=== PATIENT | female | born 1985 | race Caucasian/White ===

== ENCOUNTER 2017-12-28 12:41 | Emergency (ER) | payer OTHER ==
[2017-12-28 13:03] VITALS: RESP 16; TEMP 98.1
--- NOTE | 2017-12-28 13:42 | ED ---
Psych HPI - General Chief Complaint: Psychiatric Symptoms Stated Complaint: suicidal Time Seen by Provider: 12/28/17 13:07 Source: patient, RN notes reviewed Mode of arrival: ambulatory Limitations: no limitations - History of Present Illness Initial Comments: This is a 32-year-old female presents emergency Department chief complaint of suicidal ideation. Patient states she has ongoing depression states that she struggle with suicidal ideations for most her leg but they have worsened and she 's having more thoughts of self-harm. Patient states that she held a mitral arm today. States that she did not cut herself. 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 She states she has an appointment in the first week of January with a psychiatrist but states that those are getting worse so she came to the emergency department. Patient denies any physical complaints. She denies any chance . Denies any homicidal ideations. - Related Data Home Medications Medication Instructions Recorded Confirmed Flaxseed Oil [[place]-3 Flaxseed Oil] 1,000 mg PO HS@1700 12/28/17 12/28/17 Montelukast [Singulair] 10 mg PO HS@1700 12/28/17 12/28/17 Multivitamins, Thera [Multivitamin 1 tab PO HS@1700 12/28/17 12/28/17 (formulary)] Vilazodone HCl [Viibryd] 20 mg PO HS@1700 12/28/17 12/28/17 Vitamin C/Biotin [Hair, Skin and 1 tab PO HS@1700 12/28/17 12/28/17 Nails] Allergies Allergy/AdvReac Type Severity Reaction Status Date / Time No Known Allergies Allergy Verified 12/28/17 13:25 Review of Systems ROS Statement: Those systems with pertinent positive or pertinent negative responses have been documented in the HPI. ROS Other: All systems not noted in ROS Statement are negative. Past Medical History Additional Past Medical History / Comment(s): postural tachycardia History of Any Multi-Drug Resistant Organisms: None Reported Additional Past Surgical History / Comment(s): jaw Past Psychological History: Depression, PTSD Smoking Status: Never smoker Past Alcohol Use History: Rare Past Drug Use History: None Reported General Exam Limitations: no limitations General appearance: alert, in no apparent distress Head exam: Present: atraumatic, normocephalic, normal inspection Eye exam: Present: normal appearance, PERRL, EOMI. Absent: scleral icterus, conjunctival injection, periorbital swelling ENT exam: Present: normal exam, normal oropharynx, mucous membranes moist Neck exam: Present: normal inspection. Absent: tenderness, meningismus, lymphadenopathy Respiratory exam: Present: normal lung sounds bilaterally. Absent: respiratory distress, wheezes, rales, rhonchi, stridor Cardiovascular Exam: Present: regular rate, normal rhythm, normal heart sounds. Absent: systolic murmur, diastolic murmur, rubs, gallop, clicks GI/Abdominal exam: Present: soft, normal bowel sounds. Absent: distended, tenderness, guarding, rebound, rigid Neurological exam: Present: alert, oriented X3, CN II-XII intact Psychiatric exam: Present: flat affect Skin exam: Present: warm, dry, intact, normal color. Absent: rash Course Vital Signs 12/28/17 12:59 Temperature 98.1 F Pulse Rate 113 H Respiratory 16 Rate Blood Pressure 140/77 O2 Sat by Pulse 99 Oximetry Medical Decision Making - Medical Decision Making 32-year-old female presented for psychiatric evaluation. Patient was evaluated by EPS case discussed with on-call psychiatrist does not feel that she needs inpatient treatment they feel she is safe to be discharged at this time return for worsening symptoms. - Lab Data Lab Results 12/28/17 12/28/17 Range/Units 14:15 14:15 Urine HCG, Qual Not Detected (Not Detectd) Urine Opiates Screen Not Detected (NotDetected) Ur Oxycodone Screen Not Detected (NotDetected) Urine Methadone Screen Not Detected (NotDetected) Ur Propoxyphene Screen Not Detected (NotDetected) Ur Barbiturates Screen Not Detected (NotDetected) U Tricyclic Antidepress Not Detected (NotDetected) Ur Phencyclidine Scrn Not Detected (NotDetected) Ur Amphetamines Screen Not Detected (NotDetected) U Methamphetamines Scrn Not Detected (NotDetected) U Benzodiazepines Scrn Not Detected (NotDetected) Urine Cocaine Screen Not Detected (NotDetected) U Marijuana (THC) Screen Not Detected (NotDetected) Disposition Clinical Impression: Depression Disposition: HOME SELF-CARE Condition: Stable Instructions: Depression (ED) Additional Instructions: Please return to the Emergency Department if symptoms worsen or any other concerns. Is patient prescribed a controlled substance at d/c from ED?: No Referrals: Praveen Foreman MD [Primary Care Provider] - 1-2 days Time of Disposition: 14:58
[2017-12-28 14:44] LABS: Amphetamine Screen,Urine Not Detected (NotDetected); Barbiturate Screen,Urine Not Detected (NotDetected); Benzodiazepines Screen,Urine Not Detected (NotDetected); Cocaine Screen,Urine Not Detected (NotDetected); Methadone Screen, Urine Not Detected (NotDetected); Opiate Screen,Urine Not Detected (NotDetected); Oxycodone Screen, Urine Not Detected (NotDetected); Phencyclidine Screen,Urine Not Detected (NotDetected); Tricyclic Antidepressant,Urine Not Detected (NotDetected); Urn Cannabinoid Scrn Not Detected (NotDetected)
[2017-12-28 15:10] VITALS: BP 132/71; PULSE 88
== END 2017-12-28 15:05 | disposition home or self-care (01) ==
LOC: EC 12:41
DX: F32.9 Major depressive disorder, single episode, unspecified (principal); F43.10 Post-traumatic stress disorder, unspecified; Z79.899 Other long term (current) drug therapy
CPT/HCPCS: 80306; 81025; 82075; 99285

== ENCOUNTER 2020-04-14 17:52 | Emergency (ER) | payer OTHER ==
[2020-04-14 18:27] VITALS: BP 111/63; PULSE 62; RESP 18; TEMP 98.4
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
== END 2020-04-14 20:12 | disposition home or self-care (01) ==
LOC: EC 17:52
DX: M54.2 Cervicalgia (principal); G44.209 Tension-type headache, unspecified, not intractable; Z79.51 Long term (current) use of inhaled steroids; Z79.899 Other long term (current) drug therapy; V43.62XA Car passenger injured in collision with other type car in traffic accident, initial encounter; Y92.410 Unspecified street and highway as the place of occurrence of the external cause
CPT/HCPCS: 70450; 71046; 72125; 99284

== ENCOUNTER → 2021-05-27 | Day surgery (SDC) | payer MEDICARE ==
[2021-05-27 12:41] VITALS: RESP 16
[2021-05-27 13:22] VITALS: BP 107/73; PULSE 91; TEMP 98.7
--- NOTE | 2021-05-27 14:59 | USB ---
EXAMINATION TYPE: US breast needle core RT, MG diagnostic mammo RT wo CAD DATE OF EXAM: 05/27/2021 HISTORY: Right breast mass. FINDINGS: Maximal barrier technique was utilized. Hand hygiene achieved with soap and water and alcohol-based hand rub. The skin overlying a suitable path to the patient's mass in the 3:00 position of the right breast] was localized with ultrasound and the overlying skin prepped and draped. Ultrasound was utilized with sterile technique. Lidocaine was used for local anesthesia. Attempt with a 23-gauge needle was made, lesion was unable to be aspirated. A skin alexandru was made with a scalpel. An 18-gauge needle was advanced under direct ultrasound guidance and core specimen obtained of the mass. 3 passes were made. Specimen submittedon wet Telfa to Pathology. Following the procedure, hemostasis achieved and the patient is discharged in stable condition without complication. A butterfly clip was deployed. Postprocedure mammogram performed demonstrating the position of the clip to be medial within the right breast at the 9:00 position. IMPRESSION:STATUS POST ULTRASOUND GUIDED CORE BIOPSY OF right breast MASS, PATHOLOGY IS PENDING. THIS PROCEDURE IS PERFORMED BY THE UNDERSIGNED. Pathology Results: High Risk RIGHT BREAST, THREE O'CLOCK, ULTRASOUND GUIDED CORE BIOPSY: Sclerotic intraductal papilloma. Recommendation Surgical consult of the right breast. Consider open biopsy. [place]
== END ==
LOC: RADUSWWP 12:30
PROVIDERS: ATTEND Surgery
DX: D24.1 Benign neoplasm of right breast (principal); N63.10 Unspecified lump in the right breast, unspecified quadrant
CPT/HCPCS: 88305; 77065; 19083; A4648; J2001

== ENCOUNTER → 2021-05-27 | Outpatient (CLI) | payer MEDICARE ==
[2021-05-27 11:17] VITALS: BP 110/76; PULSE 117; RESP 16; TEMP 98.3
--- NOTE | 2021-05-27 11:51 | P.GSHP ---
History of Present Illness H&P Date: 05/27/21 Chief Complaint: right breast nipple discharge Rodney is a 35 year old white female seen in consultation for Dr. Foreman regarding right nipple discharge. She has been having the discharge since 2007. It is dark green. It comes from multiple ducts, and she has never noted blood from this site. [place] [address]. This revealed a 0.8 by 0.6 cm lesion for which an ultrasound core biopsy was recommended. She complains of random pain in the lateral breast, it is sharp and shooting in nature. It resendez not last. She states she feels bilateral new lumps in her medial breast. She does not complain of any trauma or infection in the past. The left breast ultrasound report is pending. Caffeine: none nicotine: none chocolate: rare hormones: BCP; for 7 years Family History: maternal grandmother: dx. in her 50's breast cancer; multiple recurrences did of metastatic disease Hormonal history: menarche: 14 G0 periods irregular even on BCP Surgical History: jaw surgery Medical History: Postural orthostatic tachycardia syndrome anxiety/depression All: none Social History: nicotine: none alcohol: none drugs: none - Constitutional Constitutional: Reports sweats - EENT Comment: eye migraines Eyes: denies blurred vision, denies pain Ears: deny: tinnitus Ears, nose, mouth and throat: Denies headache, Denies sore throat - Breasts Breasts: bilateral: as per HPI - Cardiovascular Cardiovascular: Denies chest pain, Denies shortness of breath - Respiratory Respiratory: Denies cough, Denies 7 - Gastrointestinal Gastrointestinal: Denies abdominal pain, Denies diarrhea, Denies nausea, Denies vomiting - Genitourinary (Female) Genitourinary: Denies dysuria, Denies hematuria - Menstruation Menstruation: Reports as per HPI - Musculoskeletal Musculoskeletal: Reports myalgias - Integumentary Integumentary: Denies pruritus, Denies rash - Neurological Neurological: Denies numbness, Denies weakness - Psychiatric Psychiatric: Reports anxiety, Reports depression - Endocrine Endocrine: Reports fatigue, Reports weight change - Hematologic/Lymphatic Comment: none - Allergic/Immunologic Allergic/Immunologic: Reports as per HPI Past Medical History Additional Past Medical History / Comment(s): postural tachycardia History of Any Multi-Drug Resistant Organisms: None Reported Additional Past Surgical History / Comment(s): jaw, and wisdome teeth 2004 Past Psychological History: Anxiety, Depression, PTSD Smoking Status: Never smoker Past Alcohol Use History: Rare Past Drug Use History: None Reported Medications and Allergies Home Medications Medication Instructions Recorded Confirmed Type Montelukast [Singulair] 10 mg PO HS@1700 12/28/17 05/27/21 History ARIPiprazole [Abilify] 10 mg PO DAILY 05/26/21 05/27/21 History LORazepam [Ativan] 0.5 mg PO QID 05/26/21 05/27/21 History Sertraline [Zoloft] 100 mg PO DAILY 05/26/21 05/27/21 History busPIRone HCl [Buspar] 5 mg PO TID 05/26/21 05/27/21 History Allergies Allergy/AdvReac Type Severity Reaction Status Date / Time No Known Allergies Allergy Verified 05/27/21 11:18 Surgical - Exam Vital Signs Temp Pulse Resp BP Pulse Ox 98.3 F 117 H 16 110/76 97 05/27/21 11:11 05/27/21 11:11 05/27/21 11:11 05/27/21 11:11 05/27/21 11:11 BMI: 32.9 - General well developed, well nourished, moderate distress - Eyes normal ocular movement - ENT no hearing loss, no congestion - Neck no masses, trachea midline - Respiratory normal respiratory effort, clear to auscultation - Cardiovascular Rhythm: regular Heart Sounds: normal: S1, S2 - Abdomen Abdomen: soft, non tender, no guarding, no rigid, no rebound - Integumentary normal turgor - Neurologic no disoriented, no combative - Musculoskeletal normal gait, normal posture - Psychiatric oriented to time, oriented to person, oriented to place, speech is normal, memory intact Breast Exam: BRA: 38C inspection: left breast larger than right, bilateral grade 3 ptosis palpation: Right breast: Multi-positional exam fibrocystic changes no dominant masses or nodules of concern, no nipple discharge Right axilla: No adenopathy of concern Left breast: Multi-positional exam fibrocystic changes, no dominant masses or nodules of concern no nipple discharge Left axilla: No adenopathy of concern Results Ultrasound report right breast review, left breast report pending Assessment and Plan Assessment: Impression: 1. Ultrasound abnormality right breast 2. Occasional right nipple discharge none is appreciated today 3. Fibrocystic breast changes 4. Asymmetry of the breasts 5. Family history of breast cancer/maternal grandmother 6. Anxiety/depression 7. Postural orthostatic tachycardia syndrome 8. breast pain bilateral Plan: 1. Obtain results of left breast ultrasound 2. Right breast ultrasound core biopsy 3. Nipple discharge appears to be physiologic non-worrisome Follow up after ultrasound core biopsy right breast Cc: Dr. Foreman
== END ==
LOC: WWCWWP 10:50
PROVIDERS: ATTEND Surgery
DX: N64.52 Nipple discharge (principal); N60.11 Diffuse cystic mastopathy of right breast; N60.12 Diffuse cystic mastopathy of left breast; F41.9 Anxiety disorder, unspecified; F32.9 Major depressive disorder, single episode, unspecified; I49.8 Other specified cardiac arrhythmias; Z80.3 Family history of malignant neoplasm of breast; Z79.899 Other long term (current) drug therapy

== ENCOUNTER → 2021-06-04 | Outpatient (CLI) | payer MEDICARE ==
[2021-06-04 14:25] VITALS: BP 126/89; PULSE 97; RESP 12; TEMP 98.3
--- NOTE | 2021-06-04 14:55 | P.PN ---
Subjective Progress Note Date: 06/04/21 Principal diagnosis: Intraductal papilloma right breast Rodney is a 35 year old who was seen in consultation for Dr. Foreman regarding right nipple discharge. She had been having the discharge since 2007. His start green. He comes from multiple ducts, she had never noted any blood from this site. [place] [address]. This revealed a 0.8 x 0.6 cm lesion for which an ultrasound core biopsy was recommended. The patient [place] [address] which was positive for sclerotic intraductal papilloma. The patient has no left breast discharge. Was having pain in that side. The patient did have [place] [address]. These results did not reveal any lesions of concern in the left breast. BCP: since 2009; used to regulate her periods Surgical history: Jaw surgery Medical history: Postural orthostatic tachycardia syndrome Anxiety/depression Social history: Nicotine: Negative Alcohol: Negative Drugs: Negative Family history: Maternal grandmother colon diagnosed in her 50s with breast cancer, multiple recurrences ultimately of metastatic disease Hormonal history: Menarche: 14 G0 Periods are regular even on control pills Objective - Vital Signs Vital signs: Vital Signs Temp 98.3 F 06/04/21 14:20 Pulse 97 06/04/21 14:20 Resp 12 06/04/21 14:20 BP 126/89 06/04/21 14:20 Pulse Ox 96 06/04/21 14:20 Intake & Output 06/03/21 06/04/21 06/04/21 18:59 06:59 18:59 Weight 92.986 kg - Constitutional General appearance: Present: cooperative - EENT Eyes: Present: EOMI ENT: Present: hearing grossly normal - Neck Neck: Present: normal ROM - Respiratory Respiratory: bilateral: CTA - Cardiovascular Heart sounds: normal: S1, S2 - Integumentary Integumentary Comment(s): biopsy site clean and dry no infection or hematoma Integumentary: Present: normal turgor - Musculoskeletal Musculoskeletal: Present: gait normal - Psychiatric Psychiatric: Present: A&O x's 3, appropriate affect, intact judgment & insight Assessment and Plan Assessment: Impression: 1. Ultrasound abnormality right breast/core biopsy intraductal papilloma Occasional right nipple discharge Fibrocystic breast changes Asymmetry of the breast Family history of breast cancer Anxiety/depression Posterolateral orthostatic tachycardia syndrome Bilateral breast pain Plan: Needle localization excisional biopsy of intraductal papilloma right breast Risks and benefits of the procedure discussed with the patient. Risks include but are not limited to bleeding, infection, reaction to the anesthetic. She understands that if the lesion which could be missed then additional treatment could be needed. She wishes to proceed. She understands that if she were w anting to breast feed in the future it may be not possible on the right side. Cc: Dr. Foreman
== END ==
LOC: WWCWWP 14:09
PROVIDERS: ATTEND Surgery
DX: D24.1 Benign neoplasm of right breast (principal); N60.19 Diffuse cystic mastopathy of unspecified breast; N64.89 Other specified disorders of breast; Z80.3 Family history of malignant neoplasm of breast; I49.8 Other specified cardiac arrhythmias; F41.9 Anxiety disorder, unspecified; F32.9 Major depressive disorder, single episode, unspecified

== ENCOUNTER → 2021-07-15 | Outpatient (CLI) | payer MEDICARE ==
[2021-07-15 14:10] VITALS: BP 113/75; PULSE 94; RESP 16; TEMP 98.2
--- NOTE | 2021-07-15 14:47 | P.PN ---
Subjective Progress Note Date: 07/15/21 Principal diagnosis: intraductal papilloma right breast Rodney is a 35 year old white female seen in consultation for Dr. Foreman regarding right nipple discharge. She had been having the discharge since 2007. It was dark green. It came from multiple ducts, and she had never noted blood from that site. [place] [id number]. This revealed a 0.8 by 0.6 cm lesion for which an ultrasound core biopsy was recommended. She complained of random pain in the lateral breast, it was sharp and shooting in nature. It did not last. She stated she felt bilateral new lumps in her medial breast. She did not complain of any trauma or infection in the past. An ultrasound core biopsy of the right breast was performed on [id number]. This was positive for a sclerotic intraductal papilloma. She did have a left breast ultrasound performed as well in April 2021 these results did not reveal any lesions of concern in the left breast. Caffeine: none nicotine: none chocolate: rare hormones: BCP; for 7 years Family History: maternal grandmother: dx. in her 50's breast cancer; multiple recurrences did of metastatic disease Hormonal history: menarche: 14 G0 periods irregular even on BCP Surgical History: jaw surgery Medical History: Postural orthostatic tachycardia syndrome anxiety/depression All: none Social History: nicotine: none alcohol: none drugs: none - Constitutional Constitutional: Reports sweats - EENT Comment: eye migraines Eyes: denies blurred vision, denies pain Ears: deny: tinnitus Ears, nose, mouth and throat: Denies headache, Denies sore throat - Breasts Breasts: bilateral: as per HPI - Cardiovascular Cardiovascular: Denies chest pain, Denies shortness of breath - Respiratory Respiratory: Denies cough, Denies 7 - Gastrointestinal Gastrointestinal: Denies abdominal pain, Denies diarrhea, Denies nausea, Denies vomiting - Genitourinary (Female) Genitourinary: Denies dysuria, Denies hematuria - Menstruation Menstruation: Reports as per HPI - Musculoskeletal Musculoskeletal: Reports myalgias - Integumentary Integumentary: Denies pruritus, Denies rash - Neurological Neurological: Denies numbness, Denies weakness - Psychiatric Psychiatric: Reports anxiety, Reports depression - Endocrine Endocrine: Reports fatigue, Reports weight change - Hematologic/Lymphatic Comment: none - Allergic/Immunologic Allergic/Immunologic: Reports as per HPI Objective - Vital Signs Vital signs: Vital Signs Temp 98.2 F 07/15/21 14:07 Pulse 94 07/15/21 14:07 Resp 16 07/15/21 14:07 BP 113/75 07/15/21 14:07 Pulse Ox 97 07/15/21 14:07 Intake & Output 07/14/21 07/15/21 07/15/21 18:59 06:59 18:59 Weight 88.451 kg - Constitutional General appearance: Present: cooperative - EENT Eyes: Present: EOMI ENT: Present: hearing grossly normal - Neck Neck: Present: normal ROM - Respiratory Respiratory: bilateral: CTA - Cardiovascular Rhythm: regular Heart sounds: normal: S1, S2 - Gastrointestinal General gastrointestinal: Present: soft - Integumentary Integumentary: Present: normal turgor - Musculoskeletal Musculoskeletal: Present: gait normal - Psychiatric Psychiatric: Present: A&O x's 3, appropriate affect, intact judgment & insight - Additional findings Additional findings: Breast Exam: BRA: 38C inspection: right breast smaller than left breast bilateral grade 2 ptosis Palpation: Right breast: Multi-positional exam fibrocystic changes no dominant masses or nodules of concern Right axilla: No adenopathy of concern Left breast: Multi-positional exam fibrocystic changes no dominant masses or nodules of concern Left axilla: No adenopathy of concern Patient right breast is smaller than left breast; right C cup and left a D cup Assessment and Plan Assessment: Impression: 1. Fibrocystic breast changes 2. Right breast intraductal papilloma 3. Asymmetry of the breast Plan: 1. Needle localization excisional lumpectomy right breast, possible onco- plastic tissue transfer Risks and benefits of the procedure discussed with the patient. Risks include but are not limited to bleeding, infection, reaction to the anesthetic. The patient understands and wishes to proceed. CC: Dr. Foreman
== END ==
LOC: WWCWWP 13:47
PROVIDERS: ATTEND Surgery
DX: D24.1 Benign neoplasm of right breast (principal); F41.9 Anxiety disorder, unspecified; F32.9 Major depressive disorder, single episode, unspecified

== ENCOUNTER 2021-07-20 07:59 | Day surgery (SDC) | payer MEDICARE, OTHER ==
[2021-07-19 08:18] VITALS: BMI 31.4
[~2021-07-20 07:59] MED LIST: DEXAMETHASONE SOD PHOSPHATE 4 MG/ML 1 ML VIAL IV ONE; HEPARIN SODIUM,PORCINE/PF 5,000 UNIT/0.5 ML SYRINGE SQ PRN; HYDROmorphone 0.5 MG/0.5 ML SYRINGE IVP PRN; LACTATED RINGERS 1,000 ML IV SCH; LIDOCAINE 1% (10MG/ML) FOR IV START INTRADERMA PRN; MIDAZOLAM 2 MG/2 ML VIAL IV PRN; ONDANSETRON 4 MG/2 ML VIAL IVP ONE; Pre Op ABX Message 1 EACH MISC MISCELLANE ONE
[2021-07-20] MEDS ORDERED: LIDOCAINE 1% INJ 10MG/ML (20 ML MDV) SQ ONE ×3 (09:37→11:46)
[2021-07-20] MEDS ORDERED: LIDOCAINE 1% INJ 10MG/ML (20 ML MDV) ONE (10:47)
[2021-07-20] MEDS ORDERED: MIDAZOLAM 2 MG/2 ML VIAL ONE (10:47)
[2021-07-20] MEDS ORDERED: GLYCOPYRROLATE 0.2 MG/ML 2 ML VIAL ONE (10:47)
[2021-07-20] MEDS ORDERED: SUCCINYLCHOLINE CHLORIDE 100 MG/5 ML SYR IV ONE (10:47)
[2021-07-20] MEDS ORDERED: NEOSTIGMINE 1 MG/ML 10 ML VIAL ONE (10:47)
[2021-07-20] MEDS ORDERED: PROPOFOL 10 MG/ML 20 ML VIAL IV ONE (10:47)
[2021-07-20] MEDS ORDERED: fentaNYL (PF) 50 MCG/ML 2 ML AMP ONE (10:47)
[2021-07-20] MEDS ORDERED: ROCURONIUM 10 MG/ML (5 ML VIAL) IV ONE (10:47)
--- NOTE | 2021-07-20 11:51 | P.OP ---
Date of Procedure: 07/20/21 Preoperative Diagnosis: Intraductal papilloma right breast Postoperative Diagnosis: Same Procedure(s) Performed: Needle localization excision intraductal papilloma right breast Anesthesia: JULIETA Surgeon: Molly Arango Estimated Blood Loss (ml): 5 IV fluids (ml): 500 Pathology: other (breast tissue) Condition: stable Disposition: same day Indications for Procedure: Core biopsy intraductal papilloma right breast Operative Findings: Fibrofatty breast tissue Description of Procedure: The patient was seen first in the radiology department. Localization of area of concern was performed. The patient was then brought to the operative suite. Following induction of anesthesia the right breast was prepped and draped in a sterile fashion. An incision was made and carried down to the shaft of the needle. Surrounding tissue was excised. Radiograph of the specimen revealed the area of concern had been removed. Prior to radiograph the specimen was painted for orientation. After we were assured that hemostasis was attained the wound was well irrigated. Titanium clips were placed. Deep tissues were closed using 3-0 Vicryl suture. Skin was closed using 4-0 Monocryl. Patient tolerated procedure in stable condition. 10 mL of 1% lidocaine was used to anesthetize the area of concern.
--- NOTE | 2021-07-20 11:53 | P.DS ---
Providers Attending physician: Molly Arango Primary care physician: Armando Foreman Plan - Discharge Summary Discharge Rx Participant: Yes New Discharge Prescriptions: No Action Montelukast [Singulair] 10 mg PO HS@1700 Sertraline [Zoloft] 100 mg PO DAILY busPIRone HCl [Buspar] 5 mg PO TID ARIPiprazole [Abilify] 10 mg PO DAILY LORazepam [Ativan] 0.5 mg PO QID Trinessa Lo 1 tab PO DAILY Discharge Medication List Montelukast [Singulair] 10 mg PO HS@1700 12/28/17 [History] ARIPiprazole [Abilify] 10 mg PO DAILY 05/26/21 [History] LORazepam [Ativan] 0.5 mg PO QID 05/26/21 [History] Sertraline [Zoloft] 100 mg PO DAILY 05/26/21 [History] busPIRone HCl [Buspar] 5 mg PO TID 05/26/21 [History] Trinessa Lo 1 tab PO DAILY 07/15/21 [History] Follow up Appointment(s)/Referral(s): Molly Arango MD [STAFF PHYSICIAN] - 07/30/21 4:00 pm Activity/Diet/Wound Care/Special Instructions: do not drive for 24 hours after DC may shower after 48 hours wear bra until seen by Dr. Doe Discharge Disposition: HOME SELF-CARE
[2021-07-20 12:20] VITALS: TEMP 97
--- NOTE | 2021-07-20 12:24 | MM ---
EXAMINATION TYPE: MG pre op needle loc RT, MG surgical specimen RT DATE OF EXAM: 07/20/2021 COMPARISON: Most recent mammogram May 27, 2021 and older studies. CLINICAL HISTORY: High risk lesion on ultrasound biopsy, intraductal papilloma TECHNIQUE: Needle localization with wire placement and surgical excision of area of concern in the right breast. FINDINGS: The procedure of needle localization with wire placement and than surgical excision was explained to the patient. Benefits, alternatives, and risks were discussed. An informed consent was then obtained. The shortest pathway for procedure was chosen. Shortest pathway was medial approach. The overlying skin was prepped and draped in usual sterile fashion. Lidocaine is used as anesthetic into the skin and subcutaneous tissue up to the level of area of concern. A 5 cm needle was used. It was placed via a medial approach under mammographic guidance. Subsequent 90 degrees mammogram show the needle to be in satisfactory position relative to the targeted area. At this point, wire was placed and the needle was withdrawn. The wire was fixed to patient's skin. Images were marked for surgeon. The patient tolerated the procedure well without any immediate complication. The patient was kept in the radiology department for short stay after the procedure and then taken to surgery for surgical excision. Targeted biopsy clip and wire are identified in specimen mammogram. The patient was kept in hospital for short stay after the procedure and then discharged home in stable condition. IMPRESSION: Successful, uncomplicated needle localization with wire placement and surgical excision of targeted biopsy clip in the right breast, full pathology results to follow. Pathology Results: High Risk RIGHT BREAST, NEEDLE LOCALIZATION EXCISION: Sclerotic intraductal papilloma, focally involving the superior margin. Other margins negative. Background fibrocystic changes. Recommendation Follow up mammogram of the right breast in 6 months. [place]
[2021-07-20] MEDS ORDERED: KETOROLAC 15 MG/ML 1 ML VIAL IVP ONE (12:31)
[2021-07-20] MEDS ORDERED: KETOROLAC 30 MG/ML 1 ML VIAL ONE (12:35)
[2021-07-20 13:02] VITALS: RESP 16
[2021-07-20 13:29] VITALS: BP 112/75; PULSE 80
== END 2021-07-20 13:57 | disposition home or self-care (01) ==
LOC: OR 07:59
PROVIDERS: ATTEND Surgery
DX: D24.1 Benign neoplasm of right breast (principal); N60.19 Diffuse cystic mastopathy of unspecified breast; I49.8 Other specified cardiac arrhythmias; N92.6 Irregular menstruation, unspecified; F41.9 Anxiety disorder, unspecified; F32.A Depression, unspecified; Z80.3 Family history of malignant neoplasm of breast; Z79.899 Other long term (current) drug therapy
CPT/HCPCS: 19301; 81025; 88307; 76098; 19281; C1819; J2250; J1100; J2710; J2405; J2001; J3010; J1885; J0330; J2704; J1170; J1644

== ENCOUNTER → 2021-07-23 | Outpatient (CLI) | payer MEDICARE ==
--- NOTE | 2021-07-23 16:06 | P.PN ---
Progress Note - Text Progress Note Date: 07/23/21 The patient is a 35-year-old white female status post right breast needle localization excisional biopsy on [id number]. Pathology revealed a sclerotic intraductal papilloma. Exam: Lungs: Clear Heart: Regular rate and rhythm Incision: Clean and dry no evidence of infection Impression: Intraductal papilloma Plan: Follow-up right breast mammogram and examination in 6 months CC: Dr. Foreman
[2021-07-23 16:09] VITALS: BP 104/72; RESP 18; TEMP 98
== END ==
LOC: WWCWWP 15:56
PROVIDERS: ATTEND Surgery
DX: D24.1 Benign neoplasm of right breast (principal)

== ENCOUNTER → 2023-06-21 | Outpatient (CLI) | payer BC ==
--- NOTE | 2023-06-21 15:34 | P.SLEEP ---
History of Present Illness DATE: 06/21/2023 CONSULTATION/NEW PATIENT EVALUATION HISTORY OF PRESENT ILLNESS/SLEEP-WAKE EVALUATION: 37-year-old lady had been ev aluated in the sleep center for possible obstructive sleep apnea hypopnea syndrome and significant excessive daytime sleepiness. SLEEP SCHEDULE: Usually sleep schedule from 11 PM to 10 AM basically 7 days a week. FALLING ASLEEP: Patient does have problems with falling asleep, has TV set and bedroom. DURING SLEEP: Patient usually sleeps on the side position with snoring and awakenings from sleep up to 10 times with up to 10 episodes of nocturia. Positive history of panic attacks, sleep on and off paralysis, episodes of choking, dry mouth, sweating, sleep talking. Positive history of hypnogogical hallucinations, sleep paralysis, no cataplexy. DURING THE DAY/WAKE STATE: In the morning patient wake up tired, has difficulties to pay attention, has problems with the memory, concentration, irritability. [place] sleepiness scale is and extremely high range of 18, which indicates sleepiness. Patient may take up to 2 naps during the day with positive history of vivid dreams during naps. PAST MEDICAL HISTORY: Depression, anxiety, bipolar, hypothyroidism, asthma of exercise. PAST SURGICAL HISTORY: Mandibular advancement surgery. MEDICATIONS: Sertraline 100 mg 2 tablets once a day, levothyroxine 88 g once a day, ITP protozoal 50 mg once a day, albuterol as needed, buspirone 15 mg once a day. SOCIAL HISTORY: Negative for smoking, alcohol consumption occasional. FAMILY HISTORY: Hypertension, heart problems, stroke, sleep apnea, diabetes, mental illness. REVIEW OF SYSTEMS:. Awakenings from sleep, significant excessive daytime sleepiness. No fevers. No double vision. No recent chest pain. No shortness of breath. No abdominal pain. No bleeding episodes. No blood in urine. No seizure episodes. PHYSICAL EXAMINATION: GENERAL: A pleasant patient without any distress. VITAL SIGNS: BP 116/74, HR 87, RR 16, weight 213.0 pounds, height 5 foot 5-3/4 inches, body mass index 34.6. HEENT: PERRLA, EOMI. Evaluation of oropharynx showed tongue protrudes midline, low position of soft palate Mallampati 34. NECK: Supple. No JVD. Thyroid is not palpable. 14-3/4 inches in circumference. LUNGS: Clear to percussion and to auscultation. Good air exchange. No wheezing or rhonchi. HEART: S1, S2 regular. No murmurs, gallops or rubs. ABDOMEN: Soft and nontender. Bowel sounds are present. No organomegaly appreciated. EXTREMITIES: No clubbing or cyanosis. COAT EXAMINER: Awake, alert, and oriented x3. Cranial nerves 2 to 7 intact. There is no fasciculation or atrophy noted. No focal deficits observed. ASSESSMENT: 1. Snoring, multiple awakenings from sleep, low position of soft palate Mallampati 34, significant retrognathia 4 mm, sleepiness. Obstructive sleep apnea hypopnea syndrome. 2. Significant excessive daytime sleepiness with [place] Sleepiness Scale of 18, positive history of hypo-medical hallucinations and sleep paralysis dictated necessity to include hypersomnia and narcolepsy and differential diagnosis. 3. Obesity BMI 34.6. 4. Bipolar disorder. 5 hypothyroidism. 6 . Asthma of exercise. 7. Status post mandibular advancement surgery. 8. History of postural orthostatic tachycardia syndrome. PLAN: 1. Home sleep apnea test for evaluation of patient's breathing during sleep. 2. Following plan after reading sleep study. Patient will need multiple sleep latency test to study will be negative for obstructive sleep apnea hypopnea syndrome. 3. Preferable position during sleep on the side. 4. No driving if patient feels any sleepiness. Patient is aware of civil and criminal liability for unsafe driving. 5. Sleep hygiene with regular sleep time for at least 7.5-8 hours. 6. Watching and losing weight. Thank you very much for referring this patient for consultation. Sincerely, Luis Campos MD, PhD, FAASM. Diplomat of [place] [employer], Sleep Medicine Board by [place] [employer] [place] [employer] Dredge Operator Supervisor of [facility] [place] Past Medical History Additional Past Medical History / Comment(s): postural tachycardia syndrome. seasonal allergies History of Any Multi-Drug Resistant Organisms: None Reported Additional Past Surgical History / Comment(s): jaw, and wisdom teeth 2004 Past Anesthesia/Blood Transfusion Reactions: No Reported Reaction Past Psychological History: Anxiety, Depression, PTSD Smoking Status: Never smoker Past Alcohol Use History: Rare Past Drug Use History: None Reported Medications and Allergies Home Medications Medication Instructions Recorded Confirmed Type Montelukast [Singulair] 10 mg PO HS@1700 12/28/17 10/13/22 History ARIPiprazole [Abilify] 10 mg PO DAILY 05/26/21 10/13/22 History LORazepam [Ativan] 0.5 mg PO QID 05/26/21 10/13/22 History Sertraline [Zoloft] 100 mg PO DAILY 05/26/21 10/13/22 History busPIRone HCl [Buspar] 5 mg PO TID 05/26/21 10/13/22 History Trinessa Lo 1 tab PO DAILY 07/15/21 10/13/22 History Atogepant [Qulipta] 10 mg PO DAILY 10/13/22 10/13/22 History Allergies Allergy/AdvReac Type Severity Reaction Status Date / Time No Known Allergies Allergy Verified 10/13/22 10:27 Sleep Note - Sleep Note Sleep Note: Temperature: Pulse Rate: Respiratory Rate: Blood Pressure: SpO2: Height: Weight: BMI: Neck Circumference:
== END ==
LOC: 3 N SLEEP 14:28
PROVIDERS: ATTEND Internal Medicine
DX: G47.33 Obstructive sleep apnea (adult) (pediatric) (principal); E66.9 Obesity, unspecified; F31.9 Bipolar disorder, unspecified; G90.A Postural orthostatic tachycardia syndrome [POTS]; E03.9 Hypothyroidism, unspecified; J45.909 Unspecified asthma, uncomplicated; Z98.890 Other specified postprocedural states; Z79.890 Hormone replacement therapy; Z79.899 Other long term (current) drug therapy
CPT/HCPCS: 99211

== ENCOUNTER → 2023-07-05 | Outpatient (CLI) | payer BC | LOC: 3 N SLEEP 13:29 | PROVIDERS: ATTEND Internal Medicine | DX: G47.33 Obstructive sleep apnea (adult) (pediatric) (principal) ==

== ENCOUNTER → 2023-10-16 | Outpatient (CLI) | payer BC ==
--- NOTE | 2023-10-16 14:25 | MM ---
Reason for Exam: Follow-up at short interval from prior study. Last screening mammogram was performed 12 month(s) ago. Patient History: Menarche at age 14. Patient has no children. Premenopausal. Currently using Hormonal Contraceptives, starting at age 31. 07/20/2021, High risk Core Biopsy on the right side. 05/27/2021, High risk Core Biopsy on the right side. Maternal grandmother had breast cancer, age 35. Last menstrual period: 10/12/2023 Risk Values: Sophia 5 year model risk: 0.9%. NCI Lifetime model risk: 18.3%. Tissue Density: There are scattered fibroglandular densities. Findings: Analyzed By CAD. Postsurgical change right breast prior examination. Chronic nodularity in her right. Areas of asymmetric density inferior left MLO view did not persist on additional views. No significant change from prior. Overall Assessment: Benign, BI-RAD 2 Management: Screening Mammogram of both breasts in 1 year. . Results were given to the patient verbally at the time of exam. Patient should continue monthly self-breast exams. A clinical breast exam by your physician is recommended on an annual basis. This exam should not preclude additional follow-up of suspicious palpable abnormalities. Note on Sophia scores and lifetime risk: 1. A Sophia score greater than 3% is considered moderate risk. If this is the case, consider specialist referral to assess eligibility for a risk reducing agent. 2. If overall lifetime risk for the development of breast cancer is 20% or higher, the patient may qualify for future screening with alternating mammogram and breast MRI. Electronically signed and approved by: Melanie Mckeon M.D. Radiologist
== END | disposition home or self-care (01) ==
LOC: RADMAMWWP 13:51
PROVIDERS: ATTEND Surgery
DX: R92.323 Mammographic fibroglandular density, bilateral breasts (principal); Z80.3 Family history of malignant neoplasm of breast; Z98.890 Other specified postprocedural states
CPT/HCPCS: 77062; 77066

== ENCOUNTER → 2023-11-08 | Outpatient (CLI) | payer BC ==
[2023-11-08 15:05] VITALS: BP 114/75; PULSE 95; RESP 18; TEMP 97.6
--- NOTE | 2023-11-08 16:47 | P.PN ---
Subjective DATE: 11/08/2023 FOLLOW UP VISIT. Patient with obstructive sleep apnea hypopnea syndrome return to sleep center for follow-up visit. Recently patient had sleep study which documented obstructive sleep apnea hypopnea syndrome. Patient was initiated on PAP therapy and today is first visit after treatment was started. Patient was able to use PAP equipment every night for the whole night. The patient does not have significant problems with the mask, PAP pressure and humidification. [place] sleepiness scale is continued to be in very high range of 16. I checked information from PAP unit. PAP unit pressure 5-14, average 7.1 cm H2O. Usage is 96% and about 70% for more then 4 hours, average 3.7 hours per night. Leak is 14 l/m, which is in acceptable range. Apnea Hypopnea Index is 0.3, which is normal. MEDICATIONS: 1. BuSpar 15 mg once a day 2. Sertraline 200 mg twice a day 3. Abilify 15 mg once a day 4. Levothyroxine 88 mcg once a day 5. Qulipta 60 mg once a day During physical exam: GENERAL: A pleasant patient without any distress. VITAL SIGNS: BP 114/75, HR 95, RR 18, weight 217.2, temperature 97.6, oxygen saturation at room air 97%. HEENT: PERRLA, EOMI.low position of soft palate, Mallapati 3. NECK: Supple. No JVD. LUNGS: Clear to percussion and to auscultation. Good air exchange. No wheezing or rhonchi. HEART: S1, S2 regular. ABDOMEN: Soft and nontender.[] EXTREMITIES: No clubbing or cyanosis. EXERCISE TEACHER: Awake, alert, and oriented x3. No focal deficit. Impressions: 1. Obstructive sleep apnea-hypopnea syndrome. Patient demonstrated great compliance with treatment, benefiting from treatment. 2. Patient continued to feel significant sleepiness with very high [place] Sleepiness Scale of 16 which dictate necessity for differential diagnosis with hypersomnia and narcolepsy type II. 3. Hypothyroidism. 4. History of bipolar. 5. History of asthma overexercise. 6. Obesity, BMI 35.5. 7. Status post mandibular advancement surgery 8. History of postural orthostatic tachycardia syndrome. Plan: 1. Continue using PAP equipment every night for the whole night. 2. To change air filter at least 1-2 times per month. 3. PAP unit should stay lower then position of the head. 4. Advised patient to remove all remaining water from humidifier canister daily and make it dry after each usage. Refill canister with fresh distilled water before each usage. 5. Sleep hygiene with regular time in bed for at least 8 hours. 6. Precautions related to driving. No driving if feel any sleepiness. 7. I will maintain prescription for PAP supplies including mask, tube, filters. 8. Multiple sleep latency test for objective evaluation patient's symptoms of significant excessive daytime sleepiness, should be done after the night while patient is on CPAP. 9. Watching and losing weight. 10. Following plan after reading multiple sleep latency test. 11. Follow-up visit to discuss results of multiple sleep latency test. Thank you very much for allowing me to participate in the management of your patient. Luis Campos MD, PhD, FAASM. Diplomat of [place] [employer], Sleep Medicine Board by [place] [employer] Crab Steamer of [facility] [place] Objective - Vital Signs Vital signs: Vital Signs Temp 97.6 F 11/08/23 14:32 Pulse 95 11/08/23 14:32 Resp 18 11/08/23 14:32 BP 114/75 11/08/23 14:32 Pulse Ox 97 11/08/23 14:32 FiO2 Intake & Output 11/07/23 11/08/23 11/08/23 18:59 06:59 18:59 Weight 98.435 kg
== END ==
LOC: 3 N SLEEP 14:07
PROVIDERS: ATTEND Internal Medicine
DX: G47.33 Obstructive sleep apnea (adult) (pediatric) (principal); G47.419 Narcolepsy without cataplexy; E03.9 Hypothyroidism, unspecified; F31.9 Bipolar disorder, unspecified; J45.909 Unspecified asthma, uncomplicated; E66.9 Obesity, unspecified; Z68.35 Body mass index [BMI] 35.0-35.9, adult; Z98.890 Other specified postprocedural states; I49.5 Sick sinus syndrome; Z99.89 Dependence on other enabling machines and devices
CPT/HCPCS: 99212

== ENCOUNTER 2024-01-01 18:56 | Outpatient (CLI) | payer BC ==
[2024-01-02 22:29] LABS: Urine Alcohol Negative (Negative); Urine Barbiturate Negative (Negative); Urine Cocaine Negative (Negative); Urine Methadone Negative (Negative); Urine Opiates Negative (Negative); Urine Phencyclidine Negative (Negative)
--- NOTE | 2024-01-04 17:34 | P.PCN ---
Description of Procedure: CPAP titration 01/01/2024 and multiple sleep latency test 01/02/2024 Titration with positive air pressure has been done for correction of respiratory abnormalities during sleep. DESCRIPTION OF PROCEDURE: The standard montage for clinical polysomnography included the electroencephalogram, the electrocardiogram, the mentalis surface e lectromyography and Lead II cardiography. The respiratory battery consisted of measurements of nasal /buccal air flow, pressure transducer measurements from the nose, thoracic and /or abdominal effort and intercostal surface electromyography. Video monitoring has been done to check for any parasomnia events. Nocturnal oxyhemoglobin saturations were obtained by finger oximetry. Step-nguyen titration with positive airway pressure was utilized to control respiratory events. Raw data of sleep recording has been reviewed and is adequate. RESULTS: Sleep efficiency was slightly decreased to 81.5%. Latency to sleep onset was normal 21.5 minutes.]. Sleep architecture showed stage N1 was short 2.2%, Delta sleep was normal 24.3%, REM sleep was significantly decreased to 6.5%. Heart rate was minimum 71 BPM, maximum 85 BPM, average 78 BPM. EMG showed 0 periodic limb movements per hour. PAP titration have been done with CPAP up to the pressure 9 cm H2O. at the range of her pressure 7 to 9 cm of water respiration was on control with normal apnea hypopnea index. At the pressure 9 cm of water it was 0. Multiple sleep latency test have been done on the following day. Test consisted from 5 naps. Patient fell asleep on all naps with short mean sleep latency 6.5 minutes. Quick eye movements have been documented in each nap. Differential diagnosis include REM sleep and eye movement secondary to effect of SSRIs. IMPRESSION: 1. Obstructive sleep apnea hypopnea syndrome on full controle with PAP treatment. 2. No periodic limb movements have been documented. 3. Multiple sleep latency test confirmed daytime sleepiness in the range of narcolepsy 6.5 minutes. Quick eye movements have been documented at each nap, which could be presentation of REM sleep, differential diagnosis with eye mov ements secondary to SSRI side effect. Please see other impressions from consultation. PLAN: 1. The patient will continue treatment with CPAP every night for the whole night. 2. Watching weight. 3. Sleep hygiene with regular time in bed for at least 8 hours. 4. No driving if feeling any sleepiness. 5. I will see the patient for follow up visit to explain the results of the test and recommendations. Patient will be started on medications to prevent excessive daytime sleepiness. Thank you very much for allowing me to participate in the management of your patient. Sincerely, Luis Campos MD, PhD, FAASM Diplomat of [place] [employer] Sleep Medicine Board of [place] [employer] Residential Program Manager of [facility] [place]
== END 2024-01-02 16:45 | disposition home or self-care (01) ==
LOC: 3 N SLEEP 18:56
PROVIDERS: ATTEND Internal Medicine
DX: G47.33 Obstructive sleep apnea (adult) (pediatric) (principal); G47.10 Hypersomnia, unspecified; G47.419 Narcolepsy without cataplexy
CPT/HCPCS: 80306; 95805; 95811

== ENCOUNTER → 2024-01-03 | Outpatient (CLI) | payer BC ==
--- NOTE | 2024-01-03 17:30 | P.PN ---
Subjective DATE: 01/03/2024 FOLLOW UP VISIT. Patient returned to sleep center for follow-up visit related to treatment of significant excessive daytime sleepiness we discussed results of sleep study and following plan. I discussed results of sleep study with patient in details. Polysomnogram did not show any significant respiratory abnormalities or periodic limb movements. Multiple sleep latency test on the following day confirmed sleepiness with mean sleep latency around 6 minutes. Patient continues to have significant excessive daytime sleepiness. Today here [place] Sleepiness Scale is in the high range of 18. MEDICATIONS:1. Sertraline 200 mg twice a day 2. Abilify 50 mg once a day 3. Levothyroxine 88 mcg once a day 4. Qulipta 60 mg once a day 5. BuSpar 15 mg once a day During physical exam: GENERAL: A pleasant patient without any distress. VITAL SIGNS: Please see below. HEENT: PERRLA, EOMI. NECK: Supple. No JVD. LUNGS: Clear to percussion and to auscultation. Good air exchange. No wheezing or rhonchi. HEART: S1, S2 regular. ABDOMEN: Soft and nontender. EXTREMITIES: No clubbing or cyanosis. GOLF COURSE DESIGNER: Awake, alert, and oriented x3. No focal deficit. Impressions: 1. No significant respiratory abnormalities on polysomnogram 2. No significant periodic limb movements. 3. Multiple sleep latency test confirmed sleepiness in the range confirming diagnosis of narcolepsy type II. 4. History of anxiety. 5. History of depression. 6. Bipolar. 7. Hypothyroidism. 8. Asthma for exercise. Plan: 1. Patient will start treatment with the lowest dose of Adderall 5 mg in the morning and in the middle of the day. 2. Sleep hygiene with regular time in bed for at least 8 hours. 3. Daytime naps permitted 4. Precautions related to driving. No driving if feel any sleepiness. Patient is aware about civil and criminal liability for unsafe driving, promised to follow recommendations. 5. Follow up visit in 1 months to evaluate clinical response on treatment and if necessary for the dose adjustment. Thank you very much for allowing me to participate in the management of your patient. Luis Campos MD, PhD, FAASM. Diplomat of [place] [employer], Sleep Medicine Board by [place] [employer] Senior Pricing Analyst of [facility] [place]
== END ==
LOC: 3 N SLEEP 15:07
PROVIDERS: ATTEND Internal Medicine
DX: G47.419 Narcolepsy without cataplexy (principal); E03.9 Hypothyroidism, unspecified; F31.9 Bipolar disorder, unspecified; J45.909 Unspecified asthma, uncomplicated; F41.9 Anxiety disorder, unspecified; G47.10 Hypersomnia, unspecified; Z79.890 Hormone replacement therapy; Z79.899 Other long term (current) drug therapy

== ENCOUNTER → 2024-02-01 | Outpatient (CLI) | payer BC ==
--- NOTE | 2024-02-01 14:33 | P.PROGSL ---
Subjective DATE: [] FOLLOW UP VISIT. Patient returned to sleep center for follow-up visit related to treatment of significant excessive daytime sleepiness secondary to narcolepsy. Patient is on treatment with Adderall 10 mg twice a day, but continued to feel significant sleepiness during the day. [place]rington sleepiness scale is in very high range of 20. Patient did not use show CPAP unit. MEDICATIONS: Levothyroxine, other medications please see below. During physical exam: GENERAL: A pleasant patient without any distress. VITAL SIGNS: Please see below, weight 217 pounds. HEENT: PERRLA, EOMI. NECK: Supple. No JVD. LUNGS: Clear to percussion and to auscultation. Good air exchange. No wheezing or rhonchi. HEART: S1, S2 regular. ABDOMEN: Soft and nontender. EXTREMITIES: No clubbing or cyanosis. COMPUTER ART INSTRUCTOR: Awake, alert, and oriented x3. No focal deficit. Impressions: 1. Narcolepsy type II, confirmed by multiple sleep latency test 2. Obstructive sleep apnea hypopnea syndrome. 3. History of depression. 4. History of anxiety. 5. Bipolar. 6. Hypothyroidism. 7. Asthma for exercise. Plan: 1. Patient will continue treatment with Adderall, dose will be increased to 20 mg twice a day. 2. Sleep hygiene with regular time in bed for at least 8 hours. 3. Daytime naps permitted 4. Precautions related to driving. No driving if feel any sleepiness. Patient is aware about civil and criminal liability for unsafe driving, promised to follow recommendations. 5. Patient should use CPAP equipment every night for the whole night and she promised follow recommendations. 6. Follow-up visit in 2 months. Patient should bring her CPAP unit to check. Thank you very much for allowing me to participate in the management of your patient. Luis Campos MD, PhD, FAASM. Diplomat of [employer], Sleep Medicine Board by [employer] Rewinder Operator Helper of [facility] [place] Objective Home Medications: Home Medications Medication Instructions Recorded Confirmed Type Montelukast [Singulair] 10 mg PO HS@1700 12/28/17 10/13/22 History ARIPiprazole [Abilify] 10 mg PO DAILY 05/26/21 02/01/24 History LORazepam [Ativan] 0.5 mg PO QID 05/26/21 10/13/22 History Sertraline [Zoloft] 100 mg PO DAILY 05/26/21 02/01/24 History busPIRone HCl [Buspar] 5 mg PO TID 05/26/21 02/01/24 History Trinessa Lo 1 tab PO DAILY 07/15/21 02/01/24 History Atogepant [Qulipta] 10 mg PO DAILY 10/13/22 02/01/24 History
== END ==
LOC: 3 N SLEEP 13:38
PROVIDERS: ATTEND Internal Medicine
DX: G47.419 Narcolepsy without cataplexy (principal); G47.33 Obstructive sleep apnea (adult) (pediatric); F31.9 Bipolar disorder, unspecified; E03.9 Hypothyroidism, unspecified; J45.909 Unspecified asthma, uncomplicated; F41.9 Anxiety disorder, unspecified
CPT/HCPCS: 99212